=== PATIENT | male | born 2000 | race African-American/Black ===

== ENCOUNTER 2023-01-17 22:33 | Emergency (ER) | payer MEDICAID, SELFPAY ==
[2023-01-17 22:34] VITALS: BP 174/100; PULSE 91; RESP 16; TEMP 36.4; O2SAT 100; BMI 30.8
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
--- NOTE | 2023-01-17 23:33 | ED.RN ---
Addictions Counselor- Jozef
--- NOTE | 2023-01-18 00:55 | ED.RN ---
Spoke with Addie, PCP, about pt and confusion on admission. PCP stated she spoke with roxanne Trujillo who stated pt could be admitted for meth detox. This RN explained that this hospital does not admit for meth detox nd pt will be discharged home. PCP stated you are required to keep him all night because he has autism with a mental health background This RN explained we are not required to keep him since he is being discharged. PCP stated he will have to spend the night since there is no one to come and pick him up. telegraphic typewriter installer notified.
[2023-01-18 01:53] VITALS: BP 168/98; PULSE 79; RESP 18; O2SAT 100
--- NOTE | 2023-01-18 11:36 | CM.ED ---
Social Work SW spoke with Yenny, [employer] coordinator, who spoke with patient's doctor's office. Office notified that patient cannot be admitted for meth detox and patient has been discharged. Yenny notified office that patient needs picked up. Patient is currently waiting on transport back to [place]. Essence Veloz SNUFF BOX FINISHER, RN REHAB
[2023-01-18 12:00] VITALS: RESP 16
== END 2023-01-18 12:22 | disposition home or self-care (01) ==
PROVIDERS: Emergency Provider Emergency Medicine; Visit Provider Emergency Medicine
DX: F15.10 Other stimulant abuse, uncomplicated (principal)
CPT/HCPCS: 99282